=== PATIENT | female | born 1985 ===

== ENCOUNTER 2018-04-30 11:04 | Emergency (ER) | payer OTHER ==
[~2018-04-30] VITALS: Ht 154.9 cm; Wt 72.6 kg
[~2018-04-30 11:04] MED LIST: MACROBID 100 M100 MG PO
== END 2018-04-30 17:23 | disposition home or self-care (01) ==
LOC: ER 11:04
DX: H81.13 Benign paroxysmal vertigo, bilateral (principal)

== ENCOUNTER 2018-12-10 10:45 | Inpatient (IN) | payer OTHER ==
[~2018-12-10] VITALS: Ht 154.9 cm; Wt 3.2 kg
[2018-12-10] MEDS ORDERED: PRENATAL + DHA1 EAC1 (12:03)
== END 2018-12-17 13:17 | disposition home or self-care (01) | DRG 788 ==
LOC: O/R 10:45 → OB/GYN 12-15 08:54
PROVIDERS: ADMIT Obstetrics & Gynecology
PROC: 4A1HXCZ Monitoring of Products of Conception, Cardiac Rate, External Approach (ICD-10-PCS; 2018-12-15)
PROC: 10D00Z1 Extraction of Products of Conception, Low, Open Approach (ICD-10-PCS; principal; 2018-12-15 11:45)
DX: O82 Encounter for cesarean delivery without indication (principal); O34.211 Maternal care for low transverse scar from previous cesarean delivery; Z3A.38 38 weeks gestation of pregnancy; Z37.0 Single live birth

== ENCOUNTER 2018-12-18 20:46 | Emergency (ER) | payer OTHER ==
[~2018-12-18] VITALS: Ht 154.9 cm; Wt 86.2 kg
[~2018-12-18 20:46] MED LIST changes: +PRENATAL + DHA1 EAC1
== END 2018-12-18 23:23 | disposition home or self-care (01) ==
LOC: ER 20:46
DX: L03.311 Cellulitis of abdominal wall (principal)